=== PATIENT | male | born 1940 | race Caucasian/White ===

== ENCOUNTER 2023-02-18 12:32 | Emergency (ER) | payer MEDICARE, BC ==
[~2023-02-18 12:32] MED LIST: Iopamidol-370 76% 500 ML MDV (1 ML CHARGE) ONE
[2023-02-18 13:48] LABS: #Neutrophils 9.4 thou/uL (1.40-6.50); %Basophils 0.2 % (0.0-1.0); %Lymphocytes 5.8 % (21.0-51.0); %Monocytes 9.3 % (0.0-10.0); %Neutrophils 84.2 % (42.0-75.0); Hematocrit 44.1 % (42.0-52.0); Hemoglobin 15.3 g/dL (14.0-18.0); Mean Corpuscular HGB CONC 34.7 g/dL (32.0-36.0); Mean Corpuscular Hemoglobin 31.6 pg (27.0-31.0); Mean Corpuscular Volume 91.1 fl (78.0-98.0); Platelet Count 236 10x3/uL (130-400); RBC Distribution Width 12.4 % (11.5-14.5); Red Blood Cell (RBC) Count 4.84 mill/uL (4.70-6.10); White Blood Cell (WBC) Count 11.1 10x3/uL (4.8-10.8)
[2023-02-18 14:14] LABS: ALT (SGPT) 14 U/L (8-55); AST (SGOT) 17 U/L (5-34); Albumin 4.1 g/dL (3.4-4.8); Alkaline Phosphatase 82 U/L (40-110); Anion Gap 17 mmol/L (10-20); BUN (Urea Nitrogen) 25 mg/dL (8.4-25.7); Bilirubin, Total 1.2 mg/dL (0.2-1.2); Calc. Creatinine Clearance 0 mL/min (70-130); Calcium 10.2 mg/dL (7.8-10.44); Carbon Dioxide 24 mmol/L (23-31); Chloride 100 mmol/L (98-107); Estimated GFR 75; Globulin 3.4 g/dL (2.4-3.5); Glucose 116 mg/dL (83-110); Potassium 3.8 mmol/L (3.5-5.1); Protein, Total 7.5 g/dL (5.8-8.1); Sodium 137 mmol/L (136-145)
[2023-02-18 15:13] LABS: Bacteria/HPF None Seen HPF (None Seen); Bilirubin Negative (Negative); Blood, Urine Trace (Negative); CAUTI Indications for Culture Pelvic or flank pain; Clarity Clear (Clear); Glucose, Urine (Dipstick) Normal (Negative); Ketone, Urine 80 mg/dL (Negative); Leukocyte Negative Leu/uL (Negative); Nitrite Negative (Negative); Protein, Urine (Dipstick) 30 mg/dL (Neg-Trace); RBC/HPF 0-3 HPF (0-3); Specific Gravity, Urine 1.023 (1.002-1.036); Squamous Epithelial None Seen HPF (0-3); Urine Culture Reflex No No; Urobilinogen Normal mg/dL (Less than 2); WBC/HPF 0-3 HPF (0-3); pH, Urine 5.5 (5.0-9.0)
== END 2023-02-18 16:11 | disposition home or self-care (01) ==
LOC: ERS 12:32
DX: N13.2 Hydronephrosis with renal and ureteral calculous obstruction (principal); I10 Essential (primary) hypertension; Z79.899 Other long term (current) drug therapy
CPT/HCPCS: 74177; 80053; 81001; 83690; 85025; 96360; 96361; Q9967

== ENCOUNTER 2023-02-21 17:01 | Emergency (ER) | payer MEDICARE, BC ==
[2023-02-21 18:15] LABS: #Eosinphils 0.1 thou/uL (0.0-0.7); #Monocytes 0.7 thou/uL (0.11-0.59); #Neutrophils 4.4 thou/uL (1.40-6.50); %Basophils 0.3 % (0.0-1.0); %Eosinophils 1.2 % (0.0-10.0); %Lymphocytes 14.7 % (21.0-51.0); %Monocytes 11.9 % (0.0-10.0); %Neutrophils 71.6 % (42.0-75.0); Hematocrit 38.1 % (42.0-52.0); Hemoglobin 13.2 g/dL (14.0-18.0); Mean Corpuscular HGB CONC 34.6 g/dL (32.0-36.0); Mean Corpuscular Volume 92.5 fl (78.0-98.0); Mean Platelet Volume 10.3 fL (7.4-10.4); Platelet Count 235 10x3/uL (130-400); RBC Distribution Width 12.3 % (11.5-14.5); Red Blood Cell (RBC) Count 4.12 mill/uL (4.70-6.10); White Blood Cell (WBC) Count 6.1 10x3/uL (4.8-10.8)
[2023-02-21 18:46] LABS: ALT (SGPT) 11 U/L (8-55); AST (SGOT) 16 U/L (5-34); Albumin 3.4 g/dL (3.4-4.8); Alkaline Phosphatase 64 U/L (40-110); Anion Gap 12 mmol/L (10-20); BUN (Urea Nitrogen) 16 mg/dL (8.4-25.7); Bilirubin, Total 0.5 mg/dL (0.2-1.2); Calc. Creatinine Clearance 0 mL/min (70-130); Calcium 9.1 mg/dL (7.8-10.44); Carbon Dioxide 27 mmol/L (23-31); Chloride 103 mmol/L (98-107); Estimated GFR 64; Globulin 2.8 g/dL (2.4-3.5); Glucose 112 mg/dL (83-110); Potassium 3.7 mmol/L (3.5-5.1); Protein, Total 6.2 g/dL (5.8-8.1); Sodium 138 mmol/L (136-145)
[2023-02-21 18:49] LABS: Troponin I 0.011 ng/mL (< 0.028)
[2023-02-21 18:57] LABS: Bacteria/HPF None Seen HPF (None Seen); Bilirubin Negative (Negative); Blood, Urine Trace (Negative); CAUTI Indications for Culture Alt mental st,lethar; Clarity Clear (Clear); Glucose, Urine (Dipstick) Normal (Negative); Ketone, Urine 40 mg/dL (Negative); Leukocyte 25 Leu/uL (Negative); Nitrite Negative (Negative); Protein, Urine (Dipstick) 30 mg/dL (Neg-Trace); RBC/HPF 0-3 HPF (0-3); Squamous Epithelial 0-3 HPF (0-3); Urobilinogen Normal mg/dL (Less than 2); pH, Urine 5.5 (5.0-9.0)
[2023-02-21 19:01] LABS: Urine Culture Reflex No No
== END 2023-02-21 20:57 | disposition home or self-care (01) ==
LOC: ERS 17:01
DX: R47.1 Dysarthria and anarthria (principal); G45.9 Transient cerebral ischemic attack, unspecified; I10 Essential (primary) hypertension; Z79.899 Other long term (current) drug therapy
CPT/HCPCS: 70450; 80053; 81001; 84484; 85025; 93005

== ENCOUNTER 2023-02-28 09:21 | Day surgery (SDC) | payer MEDICARE, BC ==
[2023-02-25 08:23] VITALS: BMI 24.3
[2023-02-28] MEDS ORDERED: fentaNYL 50 mcg/mL 1 mL Vial ONE (12:30)
[2023-02-28] MEDS ORDERED: Iopamidol 0 ML ONE (12:30)
[2023-02-28] MEDS ORDERED: Sodium Chloride 0.9% 100 ML ONE (12:41)
[2023-02-28] MEDS ORDERED: cefTRIAXone (ROCEPHIN) 1 GM VIAL ONE (12:41)
[2023-02-28] MEDS ORDERED: Ondansetron PF 4 MG/2 ML Vial ONE (14:09)
[2023-02-28] MEDS ORDERED: Lidocaine 1% PF 5 ML VIAL ONE (15:22)
[2023-02-28] MEDS ORDERED: PROPOFOL 200 MG/20 ML VIAL ONE (15:22)
== END 2023-02-28 15:18 | disposition home or self-care (01) ==
LOC: SDC 09:21
PROVIDERS: ATTEND Urology
PROC: 0TC78ZZ Extirpation of Matter from Left Ureter, Via Natural or Artificial Opening Endoscopic (ICD-10-PCS; principal; 2023-02-28)
PROC: 0T778DZ Dilation of Left Ureter with Intraluminal Device, Via Natural or Artificial Opening Endoscopic (ICD-10-PCS; 2023-02-28)
DX: N13.2 Hydronephrosis with renal and ureteral calculous obstruction (principal); N40.1 Benign prostatic hyperplasia with lower urinary tract symptoms; C61 Malignant neoplasm of prostate; N30.41 Irradiation cystitis with hematuria; I10 Essential (primary) hypertension; N52.9 Male erectile dysfunction, unspecified; M85.80 Other specified disorders of bone density and structure, unspecified site; Z79.82 Long term (current) use of aspirin; Z79.899 Other long term (current) drug therapy; Z90.49 Acquired absence of other specified parts of digestive tract; Z90.89 Acquired absence of other organs; Z98.890 Other specified postprocedural states; Z87.891 Personal history of nicotine dependence
CPT/HCPCS: 52356; 82365; C1747; C1769; C2617; J3010; 88300; J0696; J2405; J2704; J3490; Q9967

== ENCOUNTER 2023-12-09 12:00 | Outpatient (CLI) | payer MEDICARE ==
[2023-12-09] MEDS ORDERED: Furosemide 40 MG (4 mL) VIAL ONE (13:16)
== END 2023-12-09 12:01 | disposition home or self-care (01) ==
LOC: CT 12:00
PROVIDERS: ATTEND Urology
DX: N13.30 Unspecified hydronephrosis (principal); N21.0 Calculus in bladder; N32.3 Diverticulum of bladder; K76.89 Other specified diseases of liver; K57.30 Diverticulosis of large intestine without perforation or abscess without bleeding; R19.5 Other fecal abnormalities
CPT/HCPCS: 74176; 78708; A4641; A9562; J1940